=== PATIENT | male | born 1980 | race Caucasian/White ===

== ENCOUNTER → 2017-07-13 | Outpatient (REF) ==
[~2017-07-13] MED LIST: AMOXICILLIN 50500 MG PO; CLINDAMYCIN HC300 MG PO; FLAGYL500 MG PO; IBUPROFEN 200200 MG PO; METRONIDAZOLE500 MG PO; NO HOME MEDICATIONS; NORCO 325 MG-51 TAB PO
== END ==
LOC: ZLAB.WCH 09:39
DX: Z01.89 Encounter for other specified special examinations (principal)